=== PATIENT | male | born 1995 | race Caucasian/White ===

== ENCOUNTER 2019-02-15 17:27 | Emergency (ER) | payer OTHER ==
--- NOTE | 2019-02-15 17:56 | ED ---
Complaint/Male - History of Current Complaint Chief Complaint: EDUrogenitalProblems Time Seen by Provider: 02/15/19 17:56 - Allergies/Home Medications Allergies/Adverse Reactions: Allergies Allergy/AdvReac Type Severity Reaction Status Date / Time No Known Allergies Allergy Verified 02/15/19 17:40 Home Medications: Home Medications ALPRAZolam TAB* [Xanax TAB*] 1.5 mg PO DAILY 02/15/19 [History Confirmed ] Dextroamphetamine (NF) TAB [Dexedrine TAB*] 5 mg PO DAILY 02/15/19 [History Confirmed 02/15/19] FLUoxetine* [PROzac*] 40 mg PO DAILY 02/15/19 [History Confirmed 02/15/19] Lisdexamfetamine Dimesylate [Vyvanse] 30 mg PO DAILY 02/15/19 [History Confirmed 02/15/19] PMH/Surg Hx/FS Hx/Imm Hx Sensory History: Reports: Hx Contacts or Glasses Opthamlomology History: Reports: Hx Contacts or Glasses Psychiatric History: Reports: Hx Anxiety, Hx Depression Denies: Hx of Violent Episodes Against Others Infectious Disease History: No Infectious Disease History: Denies: Traveled Outside the [place] in Last 30 Days - Social History Alcohol Use: Weekly Substance Use Type: Reports: Marijuana, Other Substance Use Comment - Amount & Last Used: hash oil Smoking Status (MU): Light Every Day Tobacco Smoker Type: Cigarettes Have You Smoked in the Last Year: Yes Physical Exam Vital Signs On Initial Exam: Initial Vitals Temp Pulse Resp BP Pulse Ox 98.4 F 106 14 150/81 97 02/15/19 17:37 02/15/19 17:37 02/15/19 17:37 02/15/19 17:37 02/15/19 17:37 Diagnostics - Vital Signs Vital Signs Temp Pulse Resp BP Pulse Ox 02/15/19 17:37 98.4 F 106 14 150/81 97 - Laboratory Result Diagrams: 02/15/19 21:22 Lab Statement: Any lab studies that have been ordered have been reviewed, and results considered in the medical decision making process.
[2019-02-15 18:52] LABS: Urine Appearance Cloudy; Urine Bacteria Absent (Absent); Urine Bilirubin Negative (Negative); Urine Blood Negative (Negative); Urine Color Yellow; Urine Glucose Negative (Negative); Urine Ketones Trace (Negative); Urine Nitrite Negative (Negative); Urine Protein Negative (Negative); Urine Red Blood Cell Trace(0-2/hpf) (Absent); Urine Specific Gravity 1.025 (1.010-1.030); Urine Urobilinogen Negative (Negative); Urine White Blood Cell 1+(6-10/hpf) (Absent)
[2019-02-15 21:35] LABS: ABS Eosinophils 0.3 10^3/ul (0-0.6); ABS Lymphocytes 1.9 10^3/ul (1.0-4.8); ABS Monocytes 1.1 10^3/ul (0-0.8); Eosinophil % 3.8 %; Hematocrit 45 % (42-52); Hemoglobin 15.4 g/dL (14.0-18.0); Lymphocyte % 25.4 %; Mean Corpuscular HGB Conc 34 g/dL (31-36); Mean Corpuscular Hemoglobin 30 pg (27-31); Mean Corpuscular Volume 88 fL (80-94); Mean Platelet Volume 7.3 fL (7.4-10.4); Nucleated Red Blood Cells % 0.1; Platelet Count 209 10^3/uL (150-450); Red Blood Count 5.14 10^6 /uL (4.18-5.48); Red Cell Distribution Width 13 % (10.5-15); White Blood Count 7.3 10^3/uL (3.5-10.8)
[2019-02-15] MEDS ORDERED: Clindamycin CAP* 150 MG PO ONE (21:39)
--- NOTE | 2019-02-15 21:41 | UC ---
Complaint Male HPI - HPI Summary HPI Summary: 23 yo male presents to [facility] [place] [facility] ED with scrotal and penile pain and swelling. He tells me that for the last few months he has been placing juul nicotine vaping liquid into an eye dropper and instilling it into his urethra. He has had instanced for 2-3 days where his penis and scrotum will get swollen, painful, and red - but they usually resolve. About a month ago he had an episode for 3-4 days with significant scrotal and penile redness and swelling that lessened, but never completely resolved. He continued instilling fluid. 2 days ago pt began developing redness, swelling, and pain in his scrotum and penis. He has noticed some clear discharge from the tip of his penis. He is able to urinate without difficulty. Denies fever, abdominal pain, n/v, or hematuria. - History of Current Complaint Chief Complaint: EDUrogenitalProblems Stated Complaint: POSS CELLULITIS/SENT FROM [facility] PER PT Time Seen by Provider: 02/15/19 17:56 Hx Obtained From: Patient Onset/Duration: Gradual Onset Timing: Constant Severity Initially: Moderate Severity Currently: Moderate Pain Intensity: 5 Pain Scale Used: 0-10 Numeric - Allergies/Home Medications Allergies/Adverse Reactions: Allergies Allergy/AdvReac Type Severity Reaction Status Date / Time No Known Allergies Allergy Verified 02/15/19 17:40 Home Medications: Home Medications ALPRAZolam TAB* [Xanax TAB*] 1.5 mg PO DAILY 02/15/19 [History Confirmed ] Dextroamphetamine (NF) TAB [Dexedrine TAB*] 5 mg PO DAILY 02/15/19 [History Confirmed 02/15/19] FLUoxetine* [PROzac*] 40 mg PO DAILY 02/15/19 [History Confirmed 02/15/19] Lisdexamfetamine Dimesylate [Vyvanse] 30 mg PO DAILY 02/15/19 [History Confirmed 02/15/19] PMH/Surg Hx/FS Hx/Imm Hx - Additional Past Medical History Additional PMH: ADHD Psychological History: Anxiety - Surgical History Surgical History: None - Family History Known Family History: Positive: None - Social History Lives: Alone Alcohol Use: Weekly Substance Use Type: None Substance Use Comment - Amount & Last Used: hash oil Smoking Status (MU): Light Every Day Tobacco Smoker Type: Cigarettes Have You Smoked in the Last Year: Yes Household Exposure Type: Cigarettes - Immunization History Most Recent Influenza Vaccination: 2012 Most Recent Tetanus Shot: 2012 Most Recent Pneumonia Vaccination: n/a Review of Systems All Other Systems Reviewed And Are Negative: Yes Constitutional: Positive: Negative Skin: Positive: Negative Respiratory: Positive: Negative Cardiovascular: Positive: Negative Gastrointestinal: Positive: Negative Genitourinary: Positive: Vaginal/Penile Discharge, Vaginal/Penile Pain Neurological: Positive: Negative Psychological: Positive: Negative Physical Exam - Summary Physical Exam Summary: GENERAL: NAD. WDWN. No pain distress. SKIN: No rashes, sores, lesions, or open wounds. NECK: Supple. Nontender. No lymphadenopathy. CHEST: CTAB. No r/r/w. No accessory muscle use. Breathing comfortably and in no distress. CV: RRR. Without m/r/g. Pulses intact. Cap refill <2seconds ABDOMEN: Soft. NTTP. No CVA tenderness. Bowel sounds present NEURO: Alert. PSYCH: Age appropriate behavior. Triage Information Reviewed: Yes Vital Signs: Initial Vital Signs Temp 98.4 F 02/15/19 17:37 Pulse 106 02/15/19 17:37 Resp 14 02/15/19 17:37 BP 150/81 02/15/19 17:37 Pulse Ox 97 02/15/19 17:37 Laboratory Tests 02/15/19 02/15/19 02/15/19 18:37 21:22 21:22 WBC 7.3 RBC 5.14 Hgb 15.4 Hct 45 MCV 88 MCH 30 MCHC 34 RDW 13 Plt Count 209 MPV 7.3 L Neut % (Auto) 55.4 Lymph % (Auto) 25.4 Town[place] % (Auto) 15.1 Eos % (Auto) 3.8 Baso % (Auto) 0.3 Absolute Neuts (auto) 4.0 Absolute Lymphs (auto) 1.9 Absolute Monos (auto) 1.1 H Absolute Eos (auto) 0.3 Absolute Basos (auto) 0.0 Absolute Nucleated RBC 0.0 Nucleated RBC % 0.1 Sodium 137 Potassium 3.6 Chloride 102 Carbon Dioxide 28 Anion Gap 7 BUN 16 Creatinine 1.05 Est GFR ( Amer) 105.9 Est GFR (Non-Af Amer) 87.5 BUN/Creatinine Ratio 15.2 Glucose 84 Lactic Acid Calcium 9.8 Total Bilirubin 0.60 AST 26 ALT 40 Alkaline Phosphatase 79 Total Protein 7.7 Albumin 5.0 Globulin 2.7 Albumin/Globulin Ratio 1.9 Urine Color Yellow Urine Appearance Cloudy Urine pH 6.0 Ur Specific [place] 1.025 Urine Protein Negative Urine Ketones Trace A Urine Blood Negative Urine Nitrate Negative Urine Bilirubin Negative Urine Urobilinogen Negative Ur Leukocyte Esterase Trace A Urine WBC (Auto) 1+(6-10/hpf) A Urine RBC (Auto) Trace(0-2/hpf) Urine Bacteria Absent Urine Glucose Negative 02/15/19 21:22 WBC RBC Hgb Hct MCV MCH MCHC RDW Plt Count MPV Neut % (Auto) Lymph % (Auto) Towner % (Auto) Eos % (Auto) Baso % (Auto) Absolute Neuts (auto) Absolute Lymphs (auto) Absolute Monos (auto) Absolute Eos (auto) Absolute Basos (auto) Absolute Nucleated RBC Nucleated RBC % Sodium Potassium Chloride Carbon Dioxide Anion Gap BUN Creatinine Est GFR ( Amer) Est GFR (Non-Af Amer) BUN/Creatinine Ratio Glucose Lactic Acid 1.3 Calcium Total Bilirubin AST ALT Alkaline Phosphatase Total Protein Albumin Globulin Albumin/Globulin Ratio Urine Color Urine Appearance Urine pH Ur Specific [place] Urine Protein Urine Ketones Urine Blood Urine Nitrate Urine Bilirubin Urine Urobilinogen Ur Leukocyte Esterase Urine WBC (Auto) Urine RBC (Auto) Urine Bacteria Urine Glucose Vital Signs Reviewed: Yes Male Genital Exam: Positive: No Hernia, Erythema - Penis and scrotum, Scrotum Tenderness (R), Scrotum Tenderness (L), Other - No inguinal LAD. Moderate edema to penile shaft and entire scrotum. Midline inferior aspect of scrotum with ~ 5mm nodule. No necrotic tissue. No perineal erythema, abscess, or necrotic tissue.. Negative: Epididymal Tenderness, Hernia Mass, Inguinal Tenderness, Testicular Tenderness (R), Testicular Tenderness (L), Urethral Discharge Complaint Male Course/Dx - Course Course Of Treatment: US: 1. Scrotal cellulitis. 2. Sonographically normal testicles and epididymides. Discussed results with pt. He has no signs of systemic infection or sepsis at this time. Will start him on po clindamycin and educated him as to risks of continuing to engage in this behavior. Discussed case and results with Dr. Joaquin prior to dc and he agreed with the plan of care and dispo. - Differential Dx/Diagnosis Provider Diagnosis: Cellulitis of scrotum Discharge - Sign-Out/Discharge Documenting (check all that apply): Patient Departure Patient Received Moderate/Deep Sedation with Procedure: No - Discharge Plan Condition: Stable Disposition: HOME Prescriptions: Clindamycin Cap(NF) [Clindamycin Cap 300 mg Cap(NF)] 300 mg PO TID #21 cap Patient Education Materials: Cellulitis (ED) Referrals: No Primary Care Phys,NOPCP [Primary Care Provider] - Louie Jimenez MD [Medical Doctor] - 1 Week Additional Instructions: If you develop a fever, shortness of breath, chest pain, new or worsening symptoms - please call your PCP or go to the ED immediately. Your blood pressure was high at todays visit. Please see your primary provider within 4 weeks for recheck and re-evaluation. 1) If you continue to do this, you symptoms will return and could be significantly worse causing a loss of limb and/or function. 2) Please call Urology at the number below to schedule a follow up appointment for a recheck within 1 week 3) If you develop a fever or worsening pain/swelling/redness of the area or urinary troubles - please return to the ED immediately - Billing Disposition and Condition Condition: STABLE Disposition: Home
[2019-02-15 21:48] VITALS: BP 121/65
[2019-02-15 21:53] LABS: Albumin/Globulin Ratio 1.9 (1-3); BUN/Creatinine Ratio 15.2 (8-20); Calcium 9.8 mg/dL (8.6-10.3); EGFR African American 105.9 (>60); EGFR Non-African American 87.5 (>60); Globulin 2.7 g/dL (2-4); Potassium 3.6 mmol/L (3.5-5.0); Total Bilirubin 0.6 mg/dL (0.2-1.0); Total Protein 7.7 g/dL (6.4-8.9)
== END 2019-02-15 21:51 | disposition home or self-care (01) ==
LOC: ED 17:27
DX: N49.2 Inflammatory disorders of scrotum (principal); F17.210 Nicotine dependence, cigarettes, uncomplicated
CPT/HCPCS: 36415; 76870; 80053; 81003; 81015; 83605; 85025; 87040; 87086; 99283; A9270-GY

== ENCOUNTER 2019-07-04 18:13 | Emergency (ER) | payer OTHER ==
--- NOTE | 2019-07-04 20:08 | ED ---
Psychiatric Complaint - HPI Summary HPI Summary: This pt is a 24 Y/O M presenting to [facility] for a CC of an inability to acquire his medication due to inability to contact his doctor and states that he has had an increase in his anxiety. He was prescribed Xanax his psychiatrist and has been on the medication for over 2 years every day. He states that he has been taking 1.5 mgs throughout the day (.5 mgs TID). He states that he had been having panic attacks while at work and has been using them more than usual and ran out 3 days ago. He states that his medication was supposed to be picked up today and his pharmacy was not allowed to give it to him. He currently denies any fevers, chills, SOB, N/V, headaches, SI, HI and CP. He states that his aggravating factors are being unable to contact his doctor for a prescription refill. He states no alleviating factors. He has a PMHx of anxiety and depression. - History Of Current Complaint Chief Complaint: EDPsychosocial Time Seen by Provider: 07/04/19 19:57 Hx Obtained From: Patient Onset/Duration: Sudden Onset, Lasting Days - 3, Still Present Timing: Constant Severity Initially: Mild Severity Currently: Mild Character: Anxious Aggravating Factor(s): Other - pt states that his psychiatrist was unable to be reached and he has been unable to refill his Xnax prescription. Alleviating Factor(s): Nothing Has Suicidal: Denies: Thoughts, With A Plan Has Homicidal: Denies: Thoughts, With A Plan Recent Stressor(s): medication refill issues - Allergies/Home Medications Allergies/Adverse Reactions: Allergies Allergy/AdvReac Type Severity Reaction Status Date / Time No Known Allergies Allergy Verified 02/15/19 17:40 PMH/Surg Hx/FS Hx/Imm Hx Previously Healthy: Yes Endocrine/Hematology History: Denies: Hx Diabetes Cardiovascular History: Denies: Hx Hypertension Respiratory History: Denies: Hx Asthma Sensory History: Reports: Hx Contacts or Glasses Opthamlomology History: Reports: Hx Contacts or Glasses Psychiatric History: Reports: Hx Anxiety, Hx Depression Denies: Hx of Violent Episodes Against Others - Surgical History Surgical History: None Surgery Procedure, Year, and Place: [place] teeth - Immunization History Immunizations Up to Date: Yes Infectious Disease History: No Infectious Disease History: Denies: Traveled Outside the [place] in Last 30 Days - Family History Known Family History: Positive: Diabetes - brother - Social History Occupation: Employed Full-time Lives: Dormitory/Roommates Alcohol Use: None Alcohol Amount: quit drinking Hx Substance Use: Yes Substance Use Type: Reports: Marijuana Substance Use Comment - Amount & Last Used: daily Hx Tobacco Use: Yes Smoking Status (MU): Former Smoker Type: Cigarettes Amount Used/How Often: 3 months ago, quit Have You Smoked in the Last Year: Yes Household Exposure: No Review of Systems Negative: Fever, Chills Negative: Chest Pain Negative: Shortness Of Breath Negative: Vomiting, Nausea Negative: Headache Psychological: Other - NEGATIVE: SI and HI Positive: Anxious All Other Systems Reviewed And Are Negative: Yes Physical Exam - Summary Physical Exam Summary: Appearance: Well-appearing, Well-nourished, lying in bed comfortable Skin: Warm, dry, no obvious rash Eyes: sclera anicteric, no conjunctival pallor ENT: mucous membranes moist Neck: deferred Respiratory: No signs of respiratory distress Cardiovascular: Appears well perfused, pulses are nml Abdomen: deferred Musculoskeletal: Moving all 4 extremities without obvious discomfort Neurological: Awake and alert, mentation is normal, speech is fluent and appropriate Psychiatric: affect is normal, does not appear anxious or depressed Triage Information Reviewed: Yes Vital Signs On Initial Exam: Initial Vitals Temp Pulse Resp BP Pulse Ox 98.2 F 75 16 133/75 100 07/04/19 18:19 10 18:19 07/04/19 18:19 07/04/19 18:19 07/04/19 18:19 Vital Signs Reviewed: Yes Procedures - Sedation Patient Received Moderate/Deep Sedation with Procedure: No Diagnostics - Vital Signs Vital Signs Temp Pulse Resp BP Pulse Ox 07/04/19 18:19 98.2 F 75 16 133/75 100 - Laboratory Lab Statement: Any lab studies that have been ordered have been reviewed, and results considered in the medical decision making process. Course/Dx - Course Course Of Treatment: This pt is a 24 Y/O M presenting to [facility] for a CC of an inability to acquire his medication due to inability to contact his doctor and states that he has had an increase in his anxiety. He was prescribed Xanax his psychiatrist and has been on the medication for over 2 years every day. He states that he has been taking 1.5 mgs throughout the day (.5 mgs TID). He states that he had been having panic attacks while at work and has been using them more than usual and ran out 3 days ago. He states that his medication was supposed to be picked up today and his pharmacy was not allowed to give it to him. He has no abnormalities in his physical exam. He will be discharged home with a Dx of anxiety and benzodiazepine withdrawal. He will be given a script for Xanax for the next couple of days to help until he can reach his doctor. The pt is encouraged to return to the ED for any new or worsening symptoms. - Differential Dx/Clinical Impression Provider Diagnosis: Anxiety, Benzodiazepine withdrawal Discharge ED - Sign-Out/Discharge Documenting (check all that apply): Patient Departure - discharge - Discharge Plan Condition: Stable Disposition: HOME Prescriptions: ALPRAZolam TAB* [Xanax TAB*] 0.5 mg PO TID PRN #[id number] tab MDD 3 PRN Reason: Anxiety Patient Education Materials: Anxiety (ED) Referrals: Shanthi OBANDO,Victor Manuel Mi [Medical Doctor] - 2 Days Additional Instructions: It is very important to be careful with medication like xanax and make sure you don't run out of it. Withdrawal is very uncomfortable and can be dangerous, resulting in seizures. I have prescribed a several day supply but cannot go any further than that so make sure to reach Dr. Maki on Sunday. - Billing Disposition and Condition Condition: STABLE Disposition: Home - Attestation Statements Document Initiated by Gavino: Yes Documenting Scribe: Juan Daniel Montoya Provider For Whom Gavino is Documenting (Include Credential): Silas Joaquin MD Scribe Attestation: IJuan Daniel, scribed for Silas Joaquin MD on 07/23/19 at 1822. Scribe Documentation Reviewed: Yes Provider Attestation: The documentation as recorded by the Juan Daniel warner accurately reflects the service I personally performed and the decisions made by me, Silas Joaquin MD Status of Scribcarina Document: Viewed
[2019-07-04 20:37] VITALS: BP 132/89
== END 2019-07-04 20:36 | disposition home or self-care (01) ==
LOC: ED 18:13
DX: F41.9 Anxiety disorder, unspecified (principal); F19.930 Other psychoactive substance use, unspecified with withdrawal, uncomplicated; Z87.891 Personal history of nicotine dependence
CPT/HCPCS: 99282